=== PATIENT | female | born 1930 | race Caucasian/White ===

== ENCOUNTER → 2017-07-13 | Outpatient (CLI) | payer MEDICARE, OTHER ==
[~2017-07-13] MED LIST: ACCUNEB SO1.25 MG/1 INH; ADVAIR HFA 230M12 GM INH; AMBIEN 5 MG TABL5 M1 PO; ANTIVERT25 MG PO; ASPIR 8181 MG PO; ATORVASTATIN CA40 MG PO; BISACODYL10 MG RECTAL; BONIVA150 MG PO; CALCIUM 600 +1 EAC1 PO; COLACE 100 MG100 MG PO; COMBIVENT INH; DULCOLAX5 MG PO; DUONEB 2.5-0.5 M3 ML INH; ELIQUIS2.5 MG PO; LISINOPRIL10 MG PO; MAGOX 400400 MG PO; METAMUCIL1 EAC1 PO; MILK OF MA2400 MG/10 PO; MIRALAX17 GM PO; NORCO 5-325 TA1 EACH PO; NORVASC5 MG PO; PERCOCET PO; PROTONIX40 M1 PO; PYRIDOXINE HCL50 MG PO; TUMS PO; UNICOMPLEX M TA1 TA1 PO; VITAMIN E400 UNIT PO
--- NOTE | 2017-07-16 14:47 | EKG ---
[place] [address] ELECTROCARDIOGRAM REPORT Name: PAM BASURTO Room: [facility]#: [id number] Admission: 07/13/17 Attend Phys: Jerry Jalloh II Discharge: Date of : 30 Report #: [id number] THIS REPORT FOR: //name// [facility] Test Date: 2017-07-16 Test Time: 09:26:18 Pat Name: PAM BASURTO Department: Room: Gender: F Carpentry Professional: : 1930 Requested By: Jerry Jalloh Order Number: [id number] Reading MD: Luigi Canseco Measurements Intervals [place] Rate: 83 P: 72 ND: 178 QRS: 56 QRSD: 97 T: 59 QT: 409 QTc: 481 Interpretive Statements Sinus rhythm No previous ECG available for comparison Electronically Signed On 07-16-2017 14:47:27 FORMING TUBE SELECTOR by Luigi Canseco [email or web address] <ELECTRONICALLY SIGNED> By: Luigi Canseco MD, [facility] 07/16/17 1447 0926 5 Luigi Canseco MD, FACC /EPI
== END ==
LOC: M.MRI 13:53
DX: M17.12 Unilateral primary osteoarthritis, left knee (principal); S83.242A Other tear of medial meniscus, current injury, left knee, initial encounter; R60.0 Localized edema; M25.462 Effusion, left knee; X58.XXXA Exposure to other specified factors, initial encounter; Y93.89 Activity, other specified; Y92.89 Other specified places as the place of occurrence of the external cause; Y99.8 Other external cause status

== ENCOUNTER 2017-07-28 08:26 | Inpatient (IN) | payer MEDICARE, OTHER ==
[2017-07-16 10:00] LABS: URINE BILIRUBIN NEGATIVE (Negative); URINE BLOOD NEGATIVE (Negative); URINE CLARITY CLEAR; URINE COLOR YELLOW; URINE GLUCOSE-RANDOM NEGATIVE (Negative); URINE KETONES NEGATIVE (Negative); URINE LEUKOCYTES-REFLEX NEGATIVE (Negative); URINE NITRITE-REFLEX NEGATIVE (Negative); URINE PROTEIN NEGATIVE (Negative); URINE UROBILINOGEN 0.2 E.U./dl (0.2-1.0)
[2017-07-16 10:01] LABS: HEMATOCRIT 38.2 % (37.0-47.0); HEMOGLOBIN 12.5 gm/dL (12.0-15.0); MCH 29.3 pg (26.0-34.0); MCHC 32.8 g/dL (28.0-37.0); MCV 89.3 fL (80.0-100.0); MPV 8.4 fl. (7.2-11.1); RBC 4.27 mil/uL (4.20-5.00); RDW-CV 14.2 % (10.5-14.5); WBC 6.9 thou/uL (4.0-11.0)
[2017-07-16 10:11] LABS: PROTIME 9.9 Seconds (9.20-11.50)
[2017-07-16 10:20] LABS: ALBUMIN 3.5 g/dL (3.4-5.0); CALCIUM 9.2 mg/dL (8.5-10.1); CREATININE 1.1 mg/dL (0.6-1.3); POTASSIUM 4.3 mmol/L (3.5-5.1); TOTAL BILIRUBIN 0.5 mg/dL (<0.1-1.0); TOTAL PROTEIN 6.6 g/dL (6.4-8.2)
[~2017-07-28] VITALS: Ht 160 cm; Wt 91.2 kg
[~2017-07-28 08:26] MED LIST changes: -AMBIEN 5 MG TABL5 M1 PO; -BISACODYL10 MG RECTAL; -COLACE 100 MG100 MG PO; -DULCOLAX5 MG PO; -DUONEB 2.5-0.5 M3 ML INH; -ELIQUIS2.5 MG PO; -METAMUCIL1 EAC1 PO; -MILK OF MA2400 MG/10 PO; -MIRALAX17 GM PO; -NORCO 5-325 TA1 EACH PO; -PERCOCET PO; -TUMS PO
[2017-07-28 09:45] VITALS: BP 133/58
[2017-07-28 16:36] VITALS: BP 120/54
--- NOTE | 2017-07-28 16:48 | NUR ---
PATIENT ARRIVED TO UNIT AT 1320. ALERT AND ORIENTED X4. DENIES PAIN AND NAUSEA AT THIS TIME. IV IS PATENT AND SALINE LOCKED AT THIS TIME. VSS ON 2L O2. PATIENT HAS BEEN ORIENTED TO ROOM. CALL LIGHT IS WITHIN REACH. NURSING WILL CONTINUE TO MONITOR.
--- NOTE | 2017-07-28 16:55 | NUR ---
RECIEVED O.T. EVAL AND TX ORDERS. WILL DEFER TO P.T. AND NURSING AT THIS TIME. PLEASE ORDER FURTHER O.T. SERVICES AT THIS TIME.
[2017-07-28 20:00] VITALS: BP 131/63
[2017-07-29 00:26] VITALS: BP 113/51
[2017-07-29 04:18] VITALS: BP 121/50
--- NOTE | 2017-07-29 04:43 | NUR ---
PATIENT ALERT AND ORIENTED X4 THROUGHOUT THE SHIFT. UP WITH ASSIST X2 TO BSC, VOIDING ADEQUATELY. TOLERATING DIET. PAIN CONTROLLED WITH ORAL MEDICATIONS. DRESSING TO LEFT KNEE CLEAN, DRY AND INTACT WITH POLAR CARE IN PLACE. CONTINUE TO MONITOR.
[2017-07-29 04:55] LABS: CALCIUM 7.9 mg/dL (8.5-10.1); CREATININE 1.2 mg/dL (0.6-1.3); POTASSIUM 4.6 mmol/L (3.5-5.1)
[2017-07-29 04:56] LABS: HEMATOCRIT 32.4 % (37.0-47.0); HEMOGLOBIN 11.2 gm/dL (12.0-15.0); MCH 30.3 pg (26.0-34.0); MCHC 34.6 g/dL (28.0-37.0); MCV 87.7 fL (80.0-100.0); MPV 8.8 fl. (7.2-11.1); NUCLEATED RBCS 0 /100WBC; PLATELET COUNT* 160 thou/uL (150-400); RDW-CV 13.6 % (10.5-14.5); WBC 9.3 thou/uL (4.0-11.0)
[2017-07-29 05:53] LABS: ABSOLUTE LYMPHOCYTES 0.5 thou/uL (0.8-5.3); ABSOLUTE MONOCYTES 0.4 thou/uL (0.0-1.2); ABSOLUTE NEUTROPHILS 8.5 thou/uL (1.6-8.1); ANISOCYTOSIS 1+; PLATELET ESTIMATE ADEQUATE; POIKILOCYTOSIS 1+
[2017-07-29 08:20] VITALS: BP 118/62
--- NOTE | 2017-07-29 08:51 | NUR ---
PATIENT REPORTED SHE COULD NOT TAKE ELOQUIS DUE TO CAUSING EXCESSIVE BLEEDING. INFORMED DR. ALCARAZ, AND DR. ALCARAZ STATES SHE ALSO REPORTED NOT BEING ABLE TO TAKE XARELTO. PATIENT STATES SHE USUALLY CAN ONLY TAKE ASPIRIN. WILL NOTIFY DR. AGUIRRE.
--- NOTE | 2017-07-29 09:23 | NUR ---
DR. ALCARAZ SPOKE WITH PATIENT AND PATIENT IS AGRREABLE TO ELOQUIS, BUT THINKS IT WAS THE XARELTO THAT CAUSED THE "BLEEDING ISSUES" .
--- NOTE | 2017-07-29 16:00 | NUR ---
SPOKE WITH PT. SHE WAS ALERT AND ORIENTED. STATED SHE IS NORMALLY INDEPENDENT AT HOME. HER DAUGHTER IN LAW IS COMING TO STAY WITH HER FOR ABOUT 3 DAYS. HER NEXT DOOR NEIGHBOR CAN HELP HER DURING THE DAY AFTER THAT. SHE HAS A WALKER AND SHOWER BENCH AT HOME. HER STOOL IS ALREADY A HIGHER ONE. SHE WOULD LIKE TO USE [facility]. 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 CM WILL FOLLOW.
--- NOTE | 2017-07-29 16:15 | NUR ---
PATIENT REMAINS ALERT AND ORIENTED. PAIN CONTROLLED WITH PO MEDS. DRESSING TO LEFT KNEE DRY AND INTACT. LEFT LEG EDEMATOUS. TEDS AND SCD'S IN PLACE. RA SAT 97%. VSS. PARTICIPATED WITH PT. UP TO CHAIR. VOIDING PER BSC. CEPACOL LOZENGES FOR SORE THROAT. CALL LIGHT WITHIN REACH. WILL CONTINUE TO MONITOR.
[2017-07-29 16:16] VITALS: BP 128/56
[2017-07-29 18:27] VITALS: BP 128/56
[2017-07-29 20:00] VITALS: BP 128/64
[2017-07-30 00:10] VITALS: BP 120/58
[2017-07-30 04:01] VITALS: BP 126/58
[2017-07-30 04:04] LABS: ABSOLUTE EOSINOPHILS 0.1 thou/uL (0.0-0.7); ABSOLUTE LYMPHOCYTES 1.2 thou/uL (0.8-5.3); ABSOLUTE NEUTROPHILS 6.2 thou/uL (1.6-8.1); BASOPHILS 0.2 %; EOSINOPHILS 0.9 %; HEMATOCRIT 30.7 % (37.0-47.0); HEMOGLOBIN 10.4 gm/dL (12.0-15.0); LYMPHOCYTES 14.4 %; MCH 29.8 pg (26.0-34.0); MCHC 33.9 g/dL (28.0-37.0); MONOCYTES 12.1 %; MPV 8.8 fl. (7.2-11.1); NUCLEATED RBCS 0 /100WBC; PLATELET COUNT* 150 thou/uL (150-400); POLYS 72.4 %; RBC 3.49 mil/uL (4.20-5.00); RDW-CV 13.8 % (10.5-14.5); WBC 8.5 thou/uL (4.0-11.0)
[2017-07-30 04:42] LABS: CALCIUM 7.7 mg/dL (8.5-10.1); CREATININE 1.1 mg/dL (0.6-1.3); POTASSIUM 4.1 mmol/L (3.5-5.1)
--- NOTE | 2017-07-30 04:43 | NUR ---
PATIENT ORIENTED X4. UP WITH ASSIST X1. TOLERATING DIET. DENIES NAUSEA. PAIN CONTROLLED WITH ORAL MEDICATIONS. DRESSING TO LEFT KNEE CLEAN, DRY AND INTACT WITH POLAR CARE IN PLACE. VITAL SIGNS STABLE. PLACED ON 2L O2 AT HS, SATS 88% ON ROOM AIR. CONTINUE TO MONITOR.
[2017-07-30 08:25] VITALS: BP 118/62
--- NOTE | 2017-07-30 12:01 | NUR ---
CM SPOKE TO TH RN IN-CHARGE OF THE PATIENT AND SHE INFORMS THAT THE PATIENT WILL NEED SNF AT D/C. CM SPOKE TO THE PATIENT AND HER DTR AND THEY INFORM THAT THE PATIENT HAS BEEN TO SNF AT [facility]. TIMA CONTACTED STEPHANIE AND LEFT A JOSHAE TO INFORM OF THE REFERRAL FOR SKILLED AND FAXED THE PATIENTS FACESHEET, H&P, AND PT NOTES. CM WILL F/U WITH STEPHANIE TO DISCUSS ABILITY TO ACCEPT THE PATIENT AT D/C. CM WILL REMAIN AVAILABLE TO ASSIST AND FOLLOW NEEDED.
--- NOTE | 2017-07-30 12:52 | S ---
[place] [address] SURGICAL PATH RPT PROCEDURE Name: ELVIRA SMITH Room: [address] IN ..#: [id number] Admission: 07/28/17 Date of : 30 Discharge: Report #: [id number] Path Case #: [id number] PATHOLOGY REPORT COLLECTION DATE: 07/28/2017 RECEIVED DATE: 07/28/2017 SUBMITTING PHYS: Dr. Jerry Jalloh II OTHER PHYS: Dr. Edward Jara DO SPECIMEN(S) RECEIVED: A.Bone left knee * * * * * * * * * * * * FINAL DIAGNOSIS: Bone left knee, total knee replacement: - Benign meniscus and benign bone and cartilage including scant hematopoietic elements, with degenerative changes. (LANNY:db; 07/30/2017) PATHOLOGIST: Landen Alvarado M.D. REPORT ELECTRONICALLY SIGNED BY: Landen Alvarado M.D. DATE/TIME: 07/30/2017 12:51 * * * * * * * * * * * * GROSS PATHOLOGY: Received in formalin labeled "Elvira Smith, bone left knee," are multiple segments of bone, including tibial plateau, measuring 10.4 x 9.6 x 2.2 cm in aggregate dimensions with scant attached soft tissue; meniscus is present. Upon extensive sectioning, eburnation of the articular surfaces is not grossly evident. Pesticide Applicator sections of bone and soft tissue are submitted in cassette A1, following decalcification. (DAC; 07/29/2017) CLINICAL HISTORY: Left knee degenerative joint disease INITIAL CPT CODE(S): A; 11743, 18130 Professional services performed by [facility] at [facility], [address] [place] [address] , [place] [address]. Technical services performed by [facility] at [address] [place] [address], [facility] [address] [address]. [place] [id number] SURGICAL PATH RPT PROCEDURE Name: ELVIRA SMITH Room: [address] IN [facility].#: [id number] Admission: 07/28/17 Date of : 30 Discharge: Report #: [id number] Path Case #: [id number] [facility] [address] [address] PHONE: [phone] DIRECTOR: Viral Ovalle M.D. * * * END OF REPORT * * *
[2017-07-30 15:56] VITALS: BP 122/73
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
[2017-07-30 20:00] VITALS: BP 100/42; BP 181/85
[2017-07-31 00:04] VITALS: BP 107/55
[2017-07-31 03:47] VITALS: BP 106/48
[2017-07-31 04:34] LABS: ABSOLUTE LYMPHOCYTES 1.2 thou/uL (0.8-5.3); ABSOLUTE NEUTROPHILS 5.6 thou/uL (1.6-8.1); BASOPHILS 0.1 %; EOSINOPHILS 0.3 %; HEMATOCRIT 30.8 % (37.0-47.0); HEMOGLOBIN 10.3 gm/dL (12.0-15.0); LYMPHOCYTES 15.3 %; MCH 29.6 pg (26.0-34.0); MCHC 33.4 g/dL (28.0-37.0); MCV 88.6 fL (80.0-100.0); MONOCYTES 13.1 %; MPV 8.7 fl. (7.2-11.1); NUCLEATED RBCS 0 /100WBC; PLATELET COUNT* 146 thou/uL (150-400); POLYS 71.2 %; RBC 3.48 mil/uL (4.20-5.00); RDW-CV 13.7 % (10.5-14.5); WBC 7.8 thou/uL (4.0-11.0)
[2017-07-31 04:37] LABS: CALCIUM 7.3 mg/dL (8.5-10.1); CREATININE 1.1 mg/dL (0.6-1.3); POTASSIUM 4.4 mmol/L (3.5-5.1)
--- NOTE | 2017-07-31 07:14 | NUR ---
ASSUMED PATIENT CARE AT 1900. PATIENT ALERT AND ORIENTED TIMES FOUR. COMPLAINTS OF PAIN, MANAGED WITH ORAL PAIN MEDICATION. CURRENTLY IN CPM. ABLE TO [place] [facility] ASSIS[place] OF ONE. KARYN HOSE IN PLACE. O2 VIA NC AT 2L. POLAR PACK IN PLACE TO LEFT KNEE. HOURLY ROUNDING AND METAL CANS SUPERVISOR COMPLETED DOCUMENTED.
[2017-07-31 09:15] VITALS: BP 114/83
--- NOTE | 2017-07-31 11:12 | NUR ---
ASSUMED CARE OF PATIENT AFTER REPORT THIS MORNING. PATIENT AWAKE, ALERT, AND ORIENTED APPROPRIATELY. PHYSICAL ASSESSMENT COMPLETED AND CHARTED. COMPLAINED OF PAIN. GIVEN PRN AND SCHEDULED MEDICATIONS, SEE EMAR FOR DOCUMENTATION. PATIENT TRANSFERS AND AMBULATES WITH ASSISTANCE FROM STAFF, GAIT BELT, AND WALKER. USES CALL LIGHT APPROPRIATELY, WITHIN REACH. DENIES NEEDS AT THIS TIME. NURSING WILL CONTINUE TO MONITOR.
[2017-07-31] MEDS ORDERED: ELIQUIS2.5 MG PO (14:19)
--- NOTE | 2017-07-31 14:20 | NUR ---
PT.TO BE DISCHARGED TODAY. [facility] CAN ACCEPT HER TO A SNF BED. NOTIFIED STEPHANIE/[facility] AND FAXED HER [phone]. SHE WILL [facility] FOR [phone]. CHART COPIED TO GO WITH PT. NURSING TO CALL REPORT. NOTIFIED PT.AND DAUGHTER OF DISCHARGE.
[2017-07-31] MEDS ORDERED: AMBIEN 5 MG TABL5 M1 PO (14:21)
[2017-07-31] MEDS ORDERED: BISACODYL10 MG RECTAL (14:23)
[2017-07-31] MEDS ORDERED: DULCOLAX5 MG PO (14:24)
[2017-07-31] MEDS ORDERED: COLACE 100 MG100 MG PO (14:26)
[2017-07-31] MEDS ORDERED: DUONEB 2.5-0.5 M3 ML INH (14:29)
[2017-07-31] MEDS ORDERED: MILK OF MA2400 MG/10 PO (14:34)
[2017-07-31] MEDS ORDERED: METAMUCIL1 EAC1 PO (14:34)
[2017-07-31] MEDS ORDERED: MIRALAX17 GM PO (14:35)
[2017-07-31] MEDS ORDERED: NORCO 5-325 TA1 EACH PO (14:38)
[2017-07-31] MEDS ORDERED: TUMS PO (14:41)
[2017-07-31] MEDS ORDERED: PERCOCET PO (14:43)
[2017-07-31 14:46] VITALS: BP 128/56
--- NOTE | 2017-07-31 15:05 | NUR ---
RECEIVED ORDERS TO DISCHARGE PATIENT TO [facility] [place]. PATIENT AWARE OF TRANSFER. REPORT CALLED AND GIVEN TO LUCAS AT [facility]. DISCHARGE PAPERWORK COMPLETED AND IN PATIENT'S PACKET TO GO WITH HER TO [facility]. DENIES NEEDS AT THIS TIME. IV DISCONTINUED. NURSING WILL CONTINUE TO MONITOR UNTIL DISCHARGE.
--- NOTE | 2017-07-31 16:56 | NUR ---
PATIENT'S RIDE ARRIVED AT 1645 TO TRANSPORT PATIENT TO LONG TERM. PATIENT DISCHARGED AT 1650.
--- NOTE | 2017-08-04 08:34 | OP ---
[address] [address] OPERATIVE REPORT Name: PAM BASURTO Room: [address] IN M.R.#: [id number] Admission: 07/28/17 Attend Phys: Ashley Begum Discharge: 07/31/17 Date of : 30 Report #: [id number] THIS REPORT FOR: //name// CC: Jerry Joaquin DATE OF SERVICE: 07/28/2017 PREOPERATIVE DIAGNOSIS: Left knee osteoarthritis. POSTOPERATIVE DIAGNOSIS: Left knee osteoarthritis. PROCEDURE: Left total knee arthroplasty with Visionaire. ANESTHESIA: General endotracheal. ESTIMATED BLOOD LOSS: 50 mL SURGEON: Jerry Jalloh II, DO HOME HEALTH TRAVEL OT: GINA Chamberlain. ANTIBIOTICS: Per operative record. DRAINS: Medium Hemovac. COMPLICATIONS: None. CONDITION: The patient stable to recovery room. IMPLANTS: Listed in the operative record and progress note. BRIEF HISTORY: The patient was seen in the preoperative area, preop H and P was performed, site was marked, questions were answered. Risks and benefits were discussed of surgery and patient assumed all risk and wants to proceed. DESCRIPTION OF PROCEDURE: The patient was taken to the operative suite, placed supine on operating table and given appropriate anesthesia. A well-padded tourniquet was applied to the upper thigh, which was inflated to 300 mmHg after gravity exsanguination. The knee was then sterilely prepped and draped. Surgery began by midline incision, was carried down to the subcutaneous tissues. A medial parapatellar arthrotomy was then performed and carried down to bone. Patella was then everted and excess soft tissue was removed from around the femur. The femoral cutting block was then applied, checked with a drop lambert for rotation alignment, pinned in appropriate position and appropriate cuts were [facility] [address] [place] [address] OPERATIVE REPORT Name: PAM BASURTO Room: [address] IN [facility]#: [id number] Admission: 07/28/17 Attend Phys: Ashley Begum Discharge: 07/31/17 Date of : 30 Report #: [id number]. The 4-in-1 cutting block was then applied. Checked for rotation alignment, pinned in appropriate position and appropriate cuts were made. Tibia was then exposed. The excess meniscus was removed. Retractors were then placed on the collateral ligaments. The tibial cutting block was then applied, pinned in appropriate position, checked with a drop lambert for rotation alignment and slope, then appropriate cut was made. Tibial bone was removed. Tibial base plate was then applied. Checked for rotation alignment with a drop lambert, pinned in appropriate position. The femur was then applied and box cut was reamed. This was then trialed with the appropriate spacer which showed excellent fit and fill and excellent stability of knee through all range of motion. The patella was then reamed in appropriate fashion and sized to appropriate size, 3 peg holes were drilled and it was then trialed and found to have excellent flexion and extension of the knee with excellent tracking of the patella within the groove. These trials were removed. The tibia was punched in appropriate fashion. Bone ends were cleansed with Pulsavac irrigation and cement was mixed, applied to the final implants. These were then malleted into position and held with the knee in extension and compressed to allow the cement to cure. After this cured, excess was removed utilizing Eden and osteotome. The wound was then copiously irrigated and the final spacer was then malleted in position. Tourniquet was deflated. Hemostasis was obtained with electrocautery and cocktail was injected, PRP gel sprayed throughout the internal aspects of the knee. The medium Hemovac drain was then applied. The capsule was closed with #2 FiberWire and #1 Vicryl in [id number] fashion. Skin was closed with 2-0 Vicryl and running 3-0 Monocryl. Dermabond and sterile dressing was applied. Brady wrap and PolarCare applied. The patient transferred to the recovery room in stable condition. Counts correct throughout the procedure. <ELECTRONICALLY SIGNED> By: Jerry Jalloh II, DO 08/04/17 0834 0803 [id number] Jalloh II, DO /nt
== END 2017-07-31 16:50 | DRG 470 ==
LOC: M.PRE → M.TBA 08:26 → M.ORTHSURG 08:26 → M.PRE 09:14 → M.ORTHSURG 13:19 → M.PRE 13:52 → M.ORTHSURG 07-31 16:50
PROVIDERS: Orthopaedic Surgery; ADMIT Internal Medicine
PROC: 0SRD0J9 Replacement of Left Knee Joint with Synthetic Substitute, Cemented, Open Approach (ICD-10-PCS; principal; 2017-07-28)
DX: M17.12 Unilateral primary osteoarthritis, left knee (principal); J44.9 Chronic obstructive pulmonary disease, unspecified; Z96.651 Presence of right artificial knee joint; Z96.642 Presence of left artificial hip joint; E78.5 Hyperlipidemia, unspecified; I12.9 Hypertensive chronic kidney disease with stage 1 through stage 4 chronic kidney disease, or unspecified chronic kidney disease; K21.9 Gastro-esophageal reflux disease without esophagitis; Z96.1 Presence of intraocular lens; N18.3 Chronic kidney disease, stage 3 (moderate); E83.51 Hypocalcemia; Z88.8 Allergy status to other drugs, medicaments and biological substances; Z79.899 Other long term (current) drug therapy; Z95.2 Presence of prosthetic heart valve; Z90.49 Acquired absence of other specified parts of digestive tract